=== PATIENT | male | born 1975 | race Asian ===

== ENCOUNTER 2018-04-24 18:08 | Outpatient (CLI) | payer BC | END 2018-04-24 18:41 | disposition short-term general hospital (02) | LOC: AMB 18:08 | DX: S20.212A Contusion of left front wall of thorax, initial encounter (principal); S20.211A Contusion of right front wall of thorax, initial encounter; V89.1XXA Person injured in unspecified nonmotor-vehicle accident, nontraffic, initial encounter; Y93.89 Activity, other specified; Y92.89 Other specified places as the place of occurrence of the external cause | CPT/HCPCS: A0425; A0427 ==